=== PATIENT | male | born 1960 | race Caucasian/White ===

== ENCOUNTER 2024-05-31 14:22 | Emergency (ER) | payer SELFPAY ==
[~2024-05-31] VITALS: Ht 167.6 cm; Wt 75.0 kg
[2024-05-31 14:46] VITALS: BP 123/76; PULSE 88; RESP 18; TEMP 36.8; O2SAT 98
[2024-05-31] MEDS ORDERED: DEXAMETHASONE 0.5MG/5ML ORAL SYR PO ONE (15:15)
[2024-05-31] MEDS: DEXAMETHASONE 4MG TABLET PO NR (15:32)
[2024-05-31] MEDS: DIPHENHYDRAMINE 50MG CAPSULE PO ONE (15:32)
== END 2024-05-31 17:13 | disposition home or self-care (01) ==
LOC: ER 14:49
DX: T78.1XXA Other adverse food reactions, not elsewhere classified, initial encounter (principal); X58.XXXA Exposure to other specified factors, initial encounter
CPT/HCPCS: 99283; J8540; Q0163